=== PATIENT | male | born 1950 | race Caucasian/White ===

== ENCOUNTER 2024-02-08 04:05 | Day surgery (SDC) | payer OTHER ==
[2024-02-08] MEDS ORDERED: LIDOCAINE HCL/PF 1% SDV 5ML VIAL ONE (07:17)
[2024-02-08] MEDS ORDERED: DEXAMETHASONE SOD PHOSPHATE 10 MG/1 ML VIAL ONE (07:17)
[2024-02-08 10:38] VITALS: BMI 29.1
[2024-02-08 10:59] VITALS: RESP 18
[2024-02-08] MEDS: LIDOCAINE HCL 1% PRESERVATIVE FREE - 30ML VIAL IJ ONE ×2 (11:58)
[2024-02-08] MEDS: IOHEXOL 180 MG/1 ML ML IJ ONE ×2 (12:01)
[2024-02-08] MEDS: DEXAMETHASONE SOD PHOSPHATE 10 MG/1 ML VIAL IM ONE ×2 (12:03)
[2024-02-08 13:17] VITALS: BP 146/72; PULSE 64; TEMP 97.5
[2024-02-08] MEDS ORDERED: ACETAMINOPHEN 500 MG TABLET (FP) PO PRN (13:53)
== END 2024-02-08 12:53 | disposition home or self-care (01) ==
LOC: JASU-SURG 04:05
PROVIDERS: ATTEND Pain Medicine Pain Medicine
PROC: 3E0R3BZ Introduction of Anesthetic Agent into Spinal Canal, Percutaneous Approach (ICD-10-PCS; 2024-02-08)
PROC: 3E0R33Z Introduction of Anti-inflammatory into Spinal Canal, Percutaneous Approach (ICD-10-PCS; principal; 2024-02-08 10:15)
DX: M54.16 Radiculopathy, lumbar region (principal)
CPT/HCPCS: 76000-TC-FY; J1100

== ENCOUNTER 2024-03-07 04:32 | Day surgery (SDC) | payer OTHER ==
[2024-03-06 14:04] VITALS: BMI 29.1
[2024-03-07] MEDS ORDERED: LIDOCAINE HCL/PF 1% SDV 5ML VIAL ONE (07:15)
[2024-03-07] MEDS ORDERED: DEXAMETHASONE SOD PHOSPHATE 10 MG/1 ML VIAL ONE (07:15)
[2024-03-07 07:44] VITALS: RESP 18
[2024-03-07] MEDS: LIDOCAINE HCL 1% PRESERVATIVE FREE - 30ML VIAL IJ ONE ×2 (09:56)
[2024-03-07] MEDS: IOHEXOL 180 MG/1 ML ML IJ ONE ×2 (09:56)
[2024-03-07] MEDS: DEXAMETHASONE SOD PHOSPHATE 10 MG/1 ML VIAL IM ONE ×2 (09:59)
[2024-03-07 12:56] VITALS: BP 151/69; PULSE 53; TEMP 97.8
== END 2024-03-07 10:32 | disposition home or self-care (01) ==
LOC: JASU-SURG 04:32
PROVIDERS: ATTEND Pain Medicine Pain Medicine
PROC: 3E0R3BZ Introduction of Anesthetic Agent into Spinal Canal, Percutaneous Approach (ICD-10-PCS; 2024-03-07)
PROC: 3E0R33Z Introduction of Anti-inflammatory into Spinal Canal, Percutaneous Approach (ICD-10-PCS; principal; 2024-03-07 10:00)
DX: M54.16 Radiculopathy, lumbar region (principal)
CPT/HCPCS: 76000-TC-FY; J1100